=== PATIENT | female | born 1980 | race African-American/Black ===

== ENCOUNTER → 2022-01-02 | Outpatient (REF) ==
[2022-01-03 08:12] LABS: RUBEOLA IgG ANTIBODY 15.3 AU/mL (Immune >16.4)
== END ==
LOC: M LAB 09:53
PROVIDERS: ATTEND Nurse Practitioner Adult Health
DX: Z00.00 Encounter for general adult medical examination without abnormal findings (principal)

== ENCOUNTER 2022-02-08 12:23 | Emergency (ER) | payer BC, SELFPAY ==
[~2022-02-08] VITALS: Ht 162.6 cm; Wt 85.0 kg
[2022-02-08 15:27] VITALS: BP 130/87
[2022-02-08] MEDS ORDERED: BENZ200C70 PO (15:27)
== END 2022-02-08 15:43 | disposition home or self-care (01) ==
LOC: M ED 12:23
DX: J10.1 Influenza due to other identified influenza virus with other respiratory manifestations (principal)

== ENCOUNTER 2022-03-16 06:35 | Emergency (ER) | payer OTHER, SELFPAY ==
[~2022-03-16] VITALS: Ht 162.6 cm; Wt 86.3 kg
[~2022-03-16 06:35] MED LIST: BENZ200C70 PO
[2022-03-16 09:39] LABS: BLOOD UREA NITROGEN 15 MG/DL (9-23); CARBON DIOXIDE LEVEL 27 MMOL/L (20-31); CHLORIDE LEVEL 108 MMOL/L (98-107); CREATININE FOR GFR 0.72 MG/DL (0.55-1.30); GLOMERULAR FILTRATION RATE > 60.0 (>58); GLUCOSE, FASTING 111 MG/DL (60-100); POTASSIUM SERUM 4.9 MMOL/L (3.5-5.1); SODIUM LEVEL 141 MMOL/L (136-145)
[2022-03-16] MEDS ORDERED: NS 1,000 ML IV ONE (10:30)
[2022-03-16] MEDS ORDERED: TAMSULOSIN 0.4 MG CAP PO ONE (10:30)
[2022-03-16] MEDS ORDERED: KETOROLAC 30 MG/ML 1ML VIAL IV ONE (10:30)
[2022-03-16 10:46] LABS: BASO # 0.1 10^3/uL (0.0-0.2); BASO % 0.7 % (0.0-1.0); EOS # 0.1 10^3/uL (0.0-0.5); EOS % 1.9 % (0.0-3.0); HEMATOCRIT 36.8 % (36.0-47.0); HEMOGLOBIN 11.3 g/dl (12.0-15.5); LYMPH % 26.2 % (24.0-44.0); MEAN CORPUSCULAR HEMOGLOBIN 26.4 pg (27.0-33.0); MEAN CORPUSCULAR HGB CONC 30.7 g/dl (32.0-36.5); MONO # 0.7 10^3/uL (0.0-0.8); MONO % 9.3 % (2.0-8.0); NEUTROPHILS # 4.6 10^3/uL (1.5-8.5); NEUTROPHILS % 61.6 % (36.0-66.0); PLATELET COUNT, AUTOMATED 241 10^3/uL (150-450); RED BLOOD COUNT 4.28 10^6/uL (4.00-5.40); WHITE BLOOD COUNT 7.5 10^3/uL (4.0-10.0)
[2022-03-16] MEDS ORDERED: HYDR-3713 PO (12:06)
[2022-03-16] MEDS ORDERED: FLOM0.4C39 PO (12:06)
[2022-03-16 12:55] VITALS: BP 123/77
== END 2022-03-16 13:14 | disposition home or self-care (01) ==
LOC: M ED 06:35
DX: N13.2 Hydronephrosis with renal and ureteral calculous obstruction (principal); N83.201 Unspecified ovarian cyst, right side; D25.9 Leiomyoma of uterus, unspecified; Z79.83 Long term (current) use of bisphosphonates; Z79.1 Long term (current) use of non-steroidal anti-inflammatories (NSAID)

== ENCOUNTER 2022-04-03 19:38 | Emergency (ER) | payer OTHER ==
[~2022-04-03 19:38] MED LIST changes: +FLOM0.4C39 PO; +HYDR-3713 PO
[2022-04-03 20:25] LABS: BASO # 0.1 10^3/uL (0.0-0.2); EOS # 0.1 10^3/uL (0.0-0.5); EOS % 1.6 % (0.0-3.0); HEMATOCRIT 37.3 % (36.0-47.0); HEMOGLOBIN 11.7 g/dl (12.0-15.5); LYMPH % 28.5 % (24.0-44.0); MEAN CORPUSCULAR HEMOGLOBIN 26.5 pg (27.0-33.0); MEAN CORPUSCULAR HGB CONC 31.4 g/dl (32.0-36.5); MEAN CORPUSCULAR VOLUME 84.4 fl (80.0-96.0); MONO # 0.5 10^3/uL (0.0-0.8); MONO % 6.5 % (2.0-8.0); NEUTROPHILS # 4.3 10^3/uL (1.5-8.5); NEUTROPHILS % 62.3 % (36.0-66.0); PLATELET COUNT, AUTOMATED 317 10^3/uL (150-450); RED BLOOD COUNT 4.42 10^6/uL (4.00-5.40); WHITE BLOOD COUNT 6.9 10^3/uL (4.0-10.0)
[2022-04-03 20:48] LABS: CK-MB VALUE MASS 2.2 NG/ML (<3.6)
[2022-04-03 20:50] LABS: BLOOD UREA NITROGEN 18 MG/DL (9-23); CALCIUM LEVEL 9.3 MG/DL (8.5-10.1); CARBON DIOXIDE LEVEL 22 MMOL/L (20-31); CHLORIDE LEVEL 107 MMOL/L (98-107); CREATININE FOR GFR 0.73 MG/DL (0.55-1.30); GLOMERULAR FILTRATION RATE > 60.0 (>58); GLUCOSE, FASTING 91 MG/DL (60-100); MAGNESIUM LEVEL 1.6 MG/DL (1.8-2.4); POTASSIUM SERUM 4.2 MMOL/L (3.5-5.1); SODIUM LEVEL 136 MMOL/L (136-145)
[2022-04-03 20:52] LABS: THYROID STIMULATING HORMONE 2.076 uIU/ML (0.55-4.78)
[2022-04-03 20:54] LABS: HCG, SERUM QUALITATIVE NEGATIVE (NEGATIVE)
[2022-04-03 20:55] LABS: CPK CREATINE PHOSPHOKINASE 246 U/L (34-145); MB/CK RELATIVE INDEX 0.89 (< OR =4)
[2022-04-03 21:18] LABS: RSV AMPLIFICATION NEGATIVE (NEGATIVE)
[2022-04-03] MEDS ORDERED: ISOVUE-370 76% 100ML VIAL As Ordered ONE (22:36)
[2022-04-03] MEDS ORDERED: KETOROLAC 30 MG/ML 1ML VIAL IV ONE (23:20)
[2022-04-03] MEDS ORDERED: ONDANSETRON 4MG 2ML VIAL IV ONE (23:20)
[2022-04-04] MEDS ORDERED: MAGNESIUM OXIDE 400MG TAB (MAG-OX) PO ONE (00:05)
[2022-04-04 00:20] LABS: CK-MB VALUE MASS 2.1 NG/ML (<3.6)
[2022-04-04 00:34] LABS: MB/CK RELATIVE INDEX 0.89 (< OR =4)
[2022-04-04] MEDS ORDERED: HEPARIN DRIP 25,000 UNITS in IV 1 EA IV SCH (01:00)
[2022-04-04] MEDS ORDERED: ASPIRIN 81MG CHEW TABLET PO ONE (01:00)
[2022-04-04 01:50] LABS: INR 0.95; PARTIAL THROMBOPLASTIN TIME 21.7 SECONDS (24.8-34.2); PROTHROMBIN TIME 12.9 SECONDS (12.5-14.5)
[2022-04-04 06:30] VITALS: BP 132/74
== END 2022-04-04 07:13 | disposition short-term general hospital (02) ==
LOC: M ED 19:38
DX: I21.4 Non-ST elevation (NSTEMI) myocardial infarction (principal); R00.0 Tachycardia, unspecified; F10.10 Alcohol abuse, uncomplicated; Z79.1 Long term (current) use of non-steroidal anti-inflammatories (NSAID); Z79.83 Long term (current) use of bisphosphonates
CPT/HCPCS: 71045; 71275; 80048; 82550; 82553; 83735; 84443; 84703; 85025; 85610; 85730; 87631; 93005; 96374; 96375; 99285; J1644; J1885; J2405

== ENCOUNTER → 2022-04-10 | Outpatient (REF) | payer OTHER ==
[2022-04-10 18:19] LABS: THYROID STIMULATING HORMONE 3.013 uIU/ML (0.55-4.78)
[2022-04-10 18:20] LABS: FREE T4 1.28 NG/DL (0.89-1.76)
== END ==
LOC: M LAB REF 16:34
PROVIDERS: ATTEND Pediatrics
DX: R00.2 Palpitations (principal)

== ENCOUNTER → 2022-05-01 | Outpatient (REF) | LOC: M LABSMTC 08:48 | PROVIDERS: ATTEND Family Medicine | DX: Z11.52 Encounter for screening for COVID-19 (principal) ==

== ENCOUNTER 2022-10-20 08:59 | Emergency (ER) | payer MEDICAID, OTHER, SELFPAY ==
[~2022-10-20] VITALS: Ht 162.6 cm; Wt 87.1 kg
[2022-10-20] MEDS ORDERED: CEFU1TAB22 (10:05)
[2022-10-20] MEDS ORDERED: NAPR-837 PO (12:19)
[2022-10-20 12:23] VITALS: BP 136/84; TEMP 97.8; O2SAT 99
== END 2022-10-20 12:28 | disposition home or self-care (01) ==
LOC: M ED 08:59
DX: M54.41 Lumbago with sciatica, right side (principal); M51.37 Other intervertebral disc degeneration, lumbosacral region; N83.292 Other ovarian cyst, left side; D25.9 Leiomyoma of uterus, unspecified

== ENCOUNTER → 2023-01-07 | Outpatient (REF) | payer OTHER, MEDICAID ==
[~2023-01-07] MED LIST changes: +CEFU1TAB22; +NAPR-837 PO
== END ==
LOC: M LAB REF 18:12
PROVIDERS: ATTEND Physician Assistant Medical
DX: R05.9 Cough, unspecified (principal)

== ENCOUNTER 2023-02-07 18:51 | Emergency (ER) | payer MEDICAID, OTHER ==
[~2023-02-07] VITALS: Ht 162.6 cm; Wt 82.7 kg
[2023-02-07 19:33] LABS: BASO # 0.1 10^3/uL (0.0-0.2); BASO % 0.9 % (0.0-1.0); EOS # 0.1 10^3/uL (0.0-0.5); EOS % 1.3 % (0.0-3.0); HEMATOCRIT 39.3 % (36.0-47.0); HEMOGLOBIN 12.6 g/dl (12.0-15.5); LYMPH # 2.7 10^3/uL (1.5-5.0); LYMPH % 35.6 % (24.0-44.0); MEAN CORPUSCULAR HEMOGLOBIN 26.6 pg (27.0-33.0); MEAN CORPUSCULAR HGB CONC 32.1 g/dl (32.0-36.5); MEAN CORPUSCULAR VOLUME 83.1 fl (80.0-96.0); MONO # 0.5 10^3/uL (0.0-0.8); MONO % 7.1 % (2.0-8.0); NEUTROPHILS # 4.2 10^3/uL (1.5-8.5); PLATELET COUNT, AUTOMATED 330 10^3/uL (150-450); RED BLOOD COUNT 4.73 10^6/uL (4.00-5.40); WHITE BLOOD COUNT 7.6 10^3/uL (4.0-10.0)
[2023-02-07] MEDS ORDERED: NS 1,000 ML IV ONE (19:35)
[2023-02-07] MEDS ORDERED: KETOROLAC 30 MG/ML 1ML VIAL IV ONE (19:35)
[2023-02-07 19:58] LABS: HCG, SERUM QUANTITATIVE < 2.6 MIU/ML (<4.2); LIPASE 59 U/L (12-53)
[2023-02-07 20:00] LABS: ALBUMIN 3.9 G/DL (3.2-5.2); ALKALINE PHOSPHATASE 42 U/L (46-116); ALT/SGPT 25 U/L (7.0-40); AST/SGOT 16 U/L (<34); BILIRUBIN,DIRECT 0.1 MG/DL (<0.4); BILIRUBIN,TOTAL 0.5 MG/DL (0.3-1.2); TOTAL PROTEIN 7.5 G/DL (5.7-8.2)
[2023-02-07] MEDS ORDERED: ACETAMINOPHEN 325 MG TAB PO ONE (21:30)
[2023-02-07] MEDS ORDERED: HYDR-3713 PO (23:01)
[2023-02-07 23:06] VITALS: BP 110/58; TEMP 96.2; O2SAT 99
== END 2023-02-07 23:11 | disposition home or self-care (01) ==
LOC: M ED 18:51
DX: N83.202 Unspecified ovarian cyst, left side (principal); N93.8 Other specified abnormal uterine and vaginal bleeding; D25.9 Leiomyoma of uterus, unspecified; F17.200 Nicotine dependence, unspecified, uncomplicated; Z79.1 Long term (current) use of non-steroidal anti-inflammatories (NSAID)
CPT/HCPCS: 76856; 80047; 80076; 81001; 83690; 84702; 85025; 93976; 96374; 99284; J1885

== ENCOUNTER → 2023-02-28 | Outpatient (REF) | payer OTHER | LOC: M SFHCWAGY 17:43 | PROVIDERS: ATTEND Specialist | DX: Z01.419 Encounter for gynecological examination (general) (routine) without abnormal findings (principal) ==

== ENCOUNTER 2023-03-19 05:50 | Emergency (ER) | payer OTHER ==
[~2023-03-19] VITALS: Ht 163.8 cm; Wt 81.6 kg
[~2023-03-19 05:50] MED LIST changes: +IBUP-1022 PO; +LEXA1TAB PO
[2023-03-19] MEDS ORDERED: ACETAMINOPHEN 500 MG TAB PO ONE (06:40)
[2023-03-19 06:56] LABS: RSV AMPLIFICATION NEGATIVE (NEGATIVE)
[2023-03-19] MEDS ORDERED: BENZ-18 PO (08:23)
[2023-03-19 08:28] VITALS: BP 131/73; TEMP 96.9; O2SAT 100
== END 2023-03-19 08:35 | disposition home or self-care (01) ==
LOC: M ED 05:50
DX: J06.9 Acute upper respiratory infection, unspecified (principal); D25.9 Leiomyoma of uterus, unspecified; Z79.1 Long term (current) use of non-steroidal anti-inflammatories (NSAID); Z79.899 Other long term (current) drug therapy

== ENCOUNTER 2023-03-23 06:13 | Observation (INO) | payer MEDICAID, OTHER ==
[~2023-03-23] VITALS: Ht 162.6 cm; Wt 81.2 kg
[2023-03-23] VITALS (8 sets, daily range): BP systolic 106–138; BP diastolic 54–80; TEMP 97.1–98.9; O2SAT 95–100
[~2023-03-23 06:13] MED LIST changes: +BENZ-18 PO; +LR 1,000 ML IV SCH; +ceFAZolin SOD 2 GM in IV 1 EA IV ONE
[2023-03-23 06:51] LABS: HEMATOCRIT 39.8 % (36.0-47.0); HEMOGLOBIN 12.8 g/dl (12.0-15.5); MEAN CORPUSCULAR HEMOGLOBIN 26.3 pg (27.0-33.0); MEAN CORPUSCULAR HGB CONC 32.2 g/dl (32.0-36.5); MEAN CORPUSCULAR VOLUME 81.9 fl (80.0-96.0); PLATELET COUNT, AUTOMATED 306 10^3/uL (150-450); RED BLOOD COUNT 4.86 10^6/uL (4.00-5.40); WHITE BLOOD COUNT 4.9 10^3/uL (4.0-10.0)
[2023-03-23] MEDS ORDERED: MIDAZOLAM INJ 2MG/2ML VIAL As Ordered ONE (07:17)
[2023-03-23] MEDS ORDERED: KETOROLAC 60MG 2ML VIAL As Ordered ONE (07:17)
[2023-03-23] MEDS ORDERED: ONDANSETRON 4MG 2ML VIAL As Ordered ONE (07:17)
[2023-03-23] MEDS ORDERED: ROCURONIUM BROMIDE 50MG/5ML VIAL As Ordered ONE (07:17)
[2023-03-23] MEDS ORDERED: propofoL 200 MG/20 ML VIAL As Ordered ONE (07:17)
[2023-03-23] MEDS ORDERED: fentaNYL 100 MCG/2 ML INJECTION As Ordered ONE (07:17)
[2023-03-23] MEDS ORDERED: SUGAMMADEX SODIUM 500 MG/5 ML VIAL (BRIDION) As Ordered ONE (07:17)
[2023-03-23] MEDS ORDERED: LIDOCAINE 2% 100MG/5ML SDV (FOR ANES.) As Ordered ONE (07:17)
[2023-03-23] MEDS ORDERED: ACETAMINOPHEN 1000MG 100ML IV BAG As Ordered ONE (07:18)
[2023-03-23] MEDS ORDERED: PHENYLephrine 500MCG 5ML (100MCG/ML) SYRINGE As Ordered ONE (07:18)
[2023-03-23] MEDS ORDERED: HYDROmorphone HCL 2MG/ML 1ML VIAL As Ordered ONE (09:09)
[2023-03-23] MEDS ORDERED: ONDANSETRON 4MG 2ML VIAL IV PRN ×2 (11:10→11:40)
[2023-03-23] MEDS ORDERED: HYDROMORPHONE HCL 0.5 MG/ 0.5 ML SYRINGE IV PRN (11:10)
[2023-03-23] MEDS ORDERED: fentaNYL 100 MCG/2 ML INJECTION IV PRN (11:10)
[2023-03-23] MEDS ORDERED: LR 1,000 ML IV SCH (11:10)
[2023-03-23] MEDS ORDERED: oxyCODONE 5MG TAB PO PRN (11:10)
[2023-03-23] MEDS ORDERED: METOCLOPRAMIDE INJ 10MG/2ML VIAL IV PRN (11:40)
[2023-03-23] MEDS ORDERED: diphenhydrAMINE 50MG/ML VIAL IV PRN (11:40)
[2023-03-23] MEDS ORDERED: OXYC1TAB23 PO (11:46)
[2023-03-23] MEDS ORDERED: IBUP-1022 PO (11:46)
[2023-03-23] MEDS: LR 1,000 ML IV SCH ×2 (12:46→19:40)
[2023-03-23] MEDS: PANTOPRAZOLE 40MG VIAL IV SCH (14:28)
[2023-03-23] MEDS ORDERED: ceFAZolin SOD 2 GM in IV 1 EA IV ONE (15:00)
[2023-03-23] MEDS: PERCOCET 5MG/325MG TAB PO PRN ×2 (15:29→20:09)
[2023-03-23] MEDS: KETOROLAC 30 MG/ML 1ML VIAL IV PRN ×2 (16:10→21:45)
[2023-03-23] MEDS: DOCUSATE SODIUM 100MG CAPSULE PO SCH (20:08)
[2023-03-24] VITALS: BP 118/68; TEMP 98.3; O2SAT 98
[2023-03-24] MEDS: PERCOCET 5MG/325MG TAB PO PRN ×2 (00:02→03:55)
[2023-03-24] MEDS: LR 1,000 ML IV SCH (00:11)
[2023-03-24] MEDS: KETOROLAC 30 MG/ML 1ML VIAL IV PRN ×2 (03:54→08:54)
[2023-03-24 04:00] VITALS: BP 112/57; TEMP 98; O2SAT 99
[2023-03-24] MEDS ORDERED: PERCOCET 5MG/325MG TAB PO PRN (07:40)
[2023-03-24] MEDS ORDERED: SIMETHICONE 80MG CHEW TAB PO PRN (07:50)
[2023-03-24 08:00] VITALS: BP 122/72; TEMP 98.2; O2SAT 100
[2023-03-24] MEDS: DOCUSATE SODIUM 100MG CAPSULE PO SCH (08:05)
[2023-03-24] MEDS: PANTOPRAZOLE 40MG VIAL IV SCH (08:54)
[2023-03-24] MEDS ORDERED: GABAPENTIN 300 MG CAP PO SCH (09:00)
[2023-03-24 12:00] VITALS: BP 128/77; TEMP 98.6; O2SAT 100
[2023-03-24] MEDS ORDERED: COLA100C5 PO (13:25)
== END 2023-03-24 13:50 | disposition home or self-care (01) ==
LOC: M SDC 06:13 → M MS5PR 06:14 → M PED 12:30 → M SDC 03-24 14:00
PROVIDERS: ADMIT Specialist; ATTEND Specialist
DX: D25.1 Intramural leiomyoma of uterus (principal); N80.322 Deep endometriosis of the posterior cul-de-sac; N80.123 Deep endometriosis of bilateral ovaries; N92.0 Excessive and frequent menstruation with regular cycle; N88.8 Other specified noninflammatory disorders of cervix uteri; F17.210 Nicotine dependence, cigarettes, uncomplicated

== ENCOUNTER → 2023-04-05 | Outpatient (REF) | payer OTHER ==
[~2023-04-05] MED LIST changes: +COLA100C5 PO; -LR 1,000 ML IV SCH; +OXYC1TAB23 PO; -ceFAZolin SOD 2 GM in IV 1 EA IV ONE
[2023-04-05 12:33] LABS: APPEARANCE, URINE CLEAR (CLEAR); BACTERIA, URINE AUTO 1+ (NEGATIVE); BILIRUBIN, URINE AUTO NEGATIVE (NEGATIVE); BLOOD, URINE BLOOD NEGATIVE (NEGATIVE); COLOR, URINE YELLOW (YELLOW); GLUCOSE, URINE (UA) AUTO NEGATIVE (NEGATIVE); KETONE, URINE AUTO NEGATIVE (NEGATIVE); LEUKOCYTE ESTERASE, URINE AUTO NEGATIVE (NEGATIVE); MUCUS, URINE SMALL (NEGATIVE); NITRITE, URINE AUTO NEGATIVE (NEGATIVE); PROTEIN, URINE AUTO NEGATIVE (NEGATIVE); RBC, URINE AUTO 1 /HPF (0-3); SPECIFIC GRAVITY URINE AUTO 1.016 (1.002-1.035); SQUAMOUS EPITHELIAL CELL UR AU 2 /HPF (0-6); UROBILINOGEN, URINE AUTO 0.2 mg/dL (0.0-2.0); WBC, URINE AUTO 0 /HPF (0-3)
== END ==
LOC: M LAB REF 11:25
PROVIDERS: ATTEND Physician Assistant Medical
DX: N39.0 Urinary tract infection, site not specified (principal)

== ENCOUNTER → 2023-05-18 | Outpatient (REF) | payer OTHER ==
[2023-05-18 18:44] LABS: BLOOD UREA NITROGEN 12 MG/DL (9-23); CALCIUM LEVEL 9.6 MG/DL (8.5-10.1); CARBON DIOXIDE LEVEL 29 MMOL/L (20-31); CHLORIDE LEVEL 106 MMOL/L (98-107); CREATININE FOR GFR 0.71 MG/DL (0.55-1.30); GLOMERULAR FILTRATION RATE > 60.0 (>58); GLUCOSE, FASTING 92 MG/DL (60-100); POTASSIUM SERUM 4.1 MMOL/L (3.5-5.1); SODIUM LEVEL 138 MMOL/L (136-145)
[2023-05-18 18:45] LABS: THYROID STIMULATING HORMONE 2.277 uIU/ML (0.55-4.78)
== END ==
LOC: M LAB REF 16:12
PROVIDERS: ATTEND Nurse Practitioner Family
DX: Z86.79 Personal history of other diseases of the circulatory system (principal); R63.5 Abnormal weight gain

== ENCOUNTER → 2023-05-28 | Outpatient (REF) | LOC: M EMP 14:17 | PROVIDERS: ATTEND Family Medicine | DX: Z01.89 Encounter for other specified special examinations (principal) ==

== ENCOUNTER → 2023-05-28 | Outpatient (REF) | LOC: M EMP 13:22 | PROVIDERS: ATTEND Family Medicine | DX: Z01.89 Encounter for other specified special examinations (principal) ==

== ENCOUNTER → 2023-06-01 | Outpatient (CLI) | payer OTHER | LOC: M SOG 08:07 | PROVIDERS: ATTEND Orthopaedic Surgery | DX: M54.50 Low back pain, unspecified (principal) ==

== ENCOUNTER → 2023-08-28 | Outpatient (CLI) | payer OTHER | LOC: M PAIN 08:00 | PROVIDERS: ATTEND Nurse Practitioner Family | DX: M51.16 Intervertebral disc disorders with radiculopathy, lumbar region (principal) ==

== ENCOUNTER → 2024-05-26 | Outpatient (CLI) | payer OTHER | LOC: M RAD 11:23 | PROVIDERS: ATTEND Physician Assistant Medical | DX: M25.511 Pain in right shoulder (principal) ==

== ENCOUNTER → 2024-12-26 | Outpatient (REF) | payer OTHER ==
[~2024-12-26] MED LIST changes: -FLOM0.4C39 PO; -IBUP-1022 PO; +IBUP600T42 PO; +TAMS-18 PO
[2024-12-26 14:01] LABS: BASO # 0.1 10^3/uL (0.0-0.2); BASO % 0.9 % (0.0-1.0); EOS # 0.1 10^3/uL (0.0-0.5); EOS % 1.1 % (0.0-3.0); LYMPH # 2.1 10^3/uL (1.5-5.0); LYMPH % 27.1 % (24.0-44.0); MONO # 0.6 10^3/uL (0.0-0.8); MONO % 7.9 % (2.0-8.0); NEUTROPHILS # 4.9 10^3/uL (1.5-8.5); NEUTROPHILS % 62.7 % (36.0-66.0); PLATELET COUNT, AUTOMATED 351 10^3/uL (150-450)
[2024-12-26 14:04] LABS: C REACTIVE PROTEIN QUANTITATIV < 0.50 MG/DL (<1.0)
[2024-12-26 14:06] LABS: ALT/SGPT 27 U/L (7.0-40); AST/SGOT 18 U/L (<34); CALCIUM LEVEL 8.9 MG/DL (8.5-10.1); CARBON DIOXIDE LEVEL 25 MMOL/L (20-31); CHLORIDE LEVEL 105 MMOL/L (98-107); CHOLESTEROL LEVEL 172 MG/DL (<200); CHOLESTEROL RISK RATIO 3.02 (<5); CREATININE FOR GFR 0.69 MG/DL (0.55-1.30); GLOMERULAR FILTRATION RATE > 90.0 (>58); LDL CHOLESTEROL 93.9 MG/DL (<100); NON-HDL-C 115.1 MG/DL; POTASSIUM SERUM 3.9 MMOL/L (3.5-5.1); SODIUM LEVEL 141 MMOL/L (136-145); TRIGLYCERIDES LEVEL 106 MG/DL (<150)
[2024-12-26 14:19] LABS: ESTIMATED AVERAGE GLUCOSE 123.0 MG/DL (60-110)
== END ==
LOC: M LAB REF 12:35
PROVIDERS: ATTEND Nurse Practitioner Family
DX: E66.9 Obesity, unspecified (principal); Z68.32 Body mass index [BMI] 32.0-32.9, adult; R53.82 Chronic fatigue, unspecified